=== PATIENT | female | born 1970 | race African-American/Black ===

== ENCOUNTER 2017-11-02 05:39 | Emergency (ER) | payer OTHER ==
[~2017-11-02] VITALS: Ht 172.7 cm; Wt 123.0 kg
[2017-11-02] MEDS ORDERED: ACETAMINOPHEN 325MG TABLET PO ONE (06:30)
[2017-11-02 06:51] LABS: CHLORIDE 109 mEq/L (98-107)
[2017-11-02 06:52] LABS: HEMATOCRIT. 39.2 % (36.0-48.0); HEMOGLOBIN. 13.2 g/dL (12.0-16.0); MEAN CORPUSCULAR HEMOGLOBIN 30.7 pg (28.0-32.0); MEAN CORPUSCULAR VOLUME 91.4 fL (81.0-99.0); PLATELET 262 x1000/uL (130-400); RED BLOOD CELL COUNT 4.28 mill/uL (4.2-5.4); RED CELL DISTRIBUTION WIDTH 14.5 % (11.6-14.6)
[2017-11-02 06:59] LABS: CARBON DIOXIDE 29 mEq/L (21-32)
[2017-11-02 07:27] LABS: PLATELET ESTIMATE NORMAL
[2017-11-02 08:05] VITALS: BP 166/100
== END 2017-11-02 08:11 | disposition home or self-care (01) ==
LOC: ER 05:39
DX: S00.83XA Contusion of other part of head, initial encounter (principal); I10 Essential (primary) hypertension; V49.49XA Driver injured in collision with other motor vehicles in traffic accident, initial encounter; Y93.89 Activity, other specified; Y99.8 Other external cause status; Y92.410 Unspecified street and highway as the place of occurrence of the external cause
CPT/HCPCS: 36415; 70450; 80053; 85007; 85027; 99285; Z7610